=== PATIENT | female | born 1980 | race American Indian/Alaskan Native ===

== ENCOUNTER 2016-08-30 12:07 | Emergency (ER) | payer SELFPAY ==
[2016-08-30 12:17] VITALS: BP 129/88
--- NOTE | 2016-08-30 13:05 | XRay Report ---
LEFT ANKLE, 2 views: History: Left ankle pain. Bone mineralization is normal. There is mild diffuse soft tissue swelling. No acute osseous findings or joint pathology is appreciated. Moderate plantar spur. IMPRESSION: Soft tissue swelling. No acute process.
[2016-08-30] MEDS ORDERED: NORCO 5/325 PO ONE (15:55)
[2016-08-30] MEDS ORDERED: TORADOL IM ONE (15:55)
--- NOTE | 2016-08-30 16:24 | Emergency Department Report ---
Entered by JOHN GIORDANO, acting as scribe for JOSÉ ROBINS PA. ED Lower Extremity HPI - General Chief Complaint: Extremity Injury, Lower Stated Complaint: LFT ANKLE INJURY Time Seen by Provider: 08/30/16 15:34 Source: patient Mode of arrival: Ambulatory Limitations: No Limitations - History of Present Illness Initial Comments: 36 y/o female with no significant PMHx, presents to the ED c/o left ankle pain and swelling status post inversion injury beginning yesterday. She states she was at a trampoline park, at which time she missed the next trampoline and landed on the left ankle. Associated symptom of left ankle tenderness, but she denies chest pain, nausea, vomiting, fever, abdominal pain, and SOB. She denies prior Hx of ankle injury. Home treatment TECHNICAL CLERK includes RICE treatment and 800 mg ibuprofen, which alleviated the symptoms. MD Complaint: ankle injury (left) -: days(s) (1 day, yesterday) Injury: Ankle: Left Type of Injury: inversion Place: other (trampoline park) Severity: moderate Severity scale (0 -10): 6 Improves With: NSAID (800 ibuprofen), other (RICE treatment) Worsens With: movement Context: jumping (patient was at a trampoline park and landed on the affected ankle) Associated Symptoms: denies: other (SOB, chest pain, nausea, vomiting, abdominal pain, fever) Treatments Prior to Arrival: NSAIDS (800 ibuprofen last night), other (RONNIE bandage to affected extremity) - Related Data Previous Rx's Medication Instructions Recorded Last Taken Type Naproxen [Naprosyn] 500 mg PO BID #30 tablet 08/30/16 Unknown Rx Allergies Allergy/AdvReac Type Severity Reaction Status Date / Time Penicillins Allergy Unknown Verified 08/30/16 12:17 ED Review of Systems Comment: All other systems reviewed and negative Constitutional: denies: fever Respiratory: denies: shortness of breath Cardiovascular: denies: chest pain Gastrointestinal: denies: abdominal pain, nausea, vomiting Musculoskeletal: other (left ankle pain and tenderness) Skin: other (swelling of the left ankle) ED Past Medical Hx - Past Medical History Previous Medical History?: No - Surgical History Additional Surgical History: - Social History Smoking Status: Never Smoker Substance Use Type: Alcohol - Medications Home Medications: Home Medications Medication Instructions Recorded Confirmed Last Taken Type Naproxen [Naprosyn] 500 mg PO BID #30 tablet 08/30/16 Unknown Rx ED Physical Exam - General Limitations: No Limitations General appearance: alert, in no apparent distress - Head Head exam: Present: atraumatic, normocephalic - Eye Eye exam: Present: normal appearance - ENT ENT exam: Present: normal external ear exam - Neck Neck exam: Present: normal inspection, full ROM (supple) - Respiratory Respiratory exam: Present: normal lung sounds bilaterally (clear to auscultation throughout). Absent: respiratory distress - Cardiovascular Cardiovascular Exam: Present: regular rate, normal rhythm, normal heart sounds. Absent: systolic murmur, diastolic murmur, rubs, gallop - GI/Abdominal GI/Abdominal exam: Present: soft, normal bowel sounds (bowel sounds normative). Absent: tenderness, guarding, rebound - Extremities Exam Extremities exam: Present: tenderness (to the lateral aspect of the left ankle) , other (swelling to the lateral aspect of the left ankle, distal pulses intact , capillary refill is less than two seconds) - Back Exam Back exam: Present: normal inspection, full ROM - Neurological Exam Neurological exam: Present: alert, oriented X3, other (distal sensation is intact) - Skin Skin exam: Present: other (swelling noted to the lateral aspect of the left ankle). Absent: abrasion ED Course Vital Signs 08/30/16 08/30/16 08/30/16 12:14 16:09 16:10 Temperature 98.4 F Pulse Rate 58 L Respiratory 18 22 22 Rate Blood Pressure 129/88 O2 Sat by Pulse 100 Oximetry ED Lower Extremity MDM - Lab Data Vital Signs 08/30/16 08/30/16 08/30/16 12:14 16:09 16:10 Temperature 98.4 F Pulse Rate 58 L Respiratory 18 22 22 Rate Blood Pressure 129/88 O2 Sat by Pulse 100 Oximetry - Radiology Data Radiology results: report reviewed, image reviewed LEFT ANKLE, 2 views: History: Left ankle pain. Bone mineralization is normal. There is mild diffuse soft tissue swelling. No acute osseous findings or joint pathology is appreciated. Moderate plantar spur. IMPRESSION: Soft tissue swelling. No acute process. Transcribed By: TTR Dictated By: SHWETA MOSQUERA JR, MD Electronically Authenticated By: SHWETA MOSQUERA JR, MD Signed Date/Time: 08/30/16 1259 - Medical Decision Making 36 y/o female presents complaining of left ankle pain and swelling beginning yesterday status post inversion injury. Her left ankle x-ray is within normal limits. She will be discharged home and is encouraged to follow up with a primary care provider. She will be sent home on Naprosyn and is encouraged to return to the emergency room for any worsening symptoms. ED Disposition Clinical Impression: Ankle pain Qualifiers: Laterality: left Chronicity: acute Qualified Code(s): M25.572 - Pain in left ankle and joints of left foot Disposition: DISCHARGED TO HOME OR SELFCARE Is pt being admited?: No Does the pt Need Aspirin: No Condition: Stable Instructions: Ankle Sprain (ED), Ankle Exercises (GEN) Additional Instructions: Rest. Ice. Compress. Elevate. Follow-up with primary care provider. Return to the emergency department if symptoms worsen. Prescriptions: Naproxen [Naprosyn] 500 mg PO BID #30 tablet Referrals: PRIMARY MD OMID [Primary Care Provider] - 3-5 Days PASQUALE FORMAN MD [Staff Physician] - 3-5 Days Forms: Work/School Release Form(ED) Time of Disposition: 16:23 This documentation as recorded by the PASQUALE shane GRACE,accurately reflects the service I personally performed and the decisions made by SHIMON lane NATASHA, PA.
== END 2016-08-30 16:36 | disposition home or self-care (01) ==
LOC: ED 12:07
DX: M25.572 Pain in left ankle and joints of left foot (principal); Z88.0 Allergy status to penicillin; W18.30XA Fall on same level, unspecified, initial encounter; Y93.89 Activity, other specified; Y99.8 Other external cause status; Y92.830 Public park as the place of occurrence of the external cause
CPT/HCPCS: 73600; 96372; 99284; J1885

== ENCOUNTER 2016-09-28 14:01 | Outpatient (CLI) | payer OTHER ==
--- NOTE | 2016-09-30 09:06 | Magnetic Resonance Report ---
MR LOWER EXTREMITY JOINT LEFT WITHOUT CONTRAST HISTORY: Left ankle swelling. TECHNIQUE: Multisequence, multiplanar MRI without IV gadolinium. Fat suppression technique was utilized. COMPARISON: Left ankle, 2 views performed on 08/30/16 which demonstrated nonspecific lateral soft tissue swelling. FINDINGS: Soft tissue swelling has nearly resolved since the previous x-ray. There appears to be minimal nonspecific subcutaneous edema laterally on today's exam. There is a suggestion of mild thickening of the peroneal brevis and longus tendons in the lateral ankle. There is no convincing tear. No fluid in the tendon sheath to suggest tenosynovitis. A mild tendinopathy could be considered. The anterior tibial tendon, visualized foot dorsi flexor tendons, Achilles tendon, posterior tibial tendon, flexor digitorum longus tendon and flexor hallucis longus tendons have a normal appearance. Bone marrow signal throughout the visualized ankle and foot is within normal limits. No fracture, bone lesion or erosive joint pathology. No ligamentous injury is identified. A small joint effusion is identified at the tibiotalar joint of uncertain etiology. The plantar fascia is within normal limits. No plantar spur. Impression: Minimal nonspecific lateral soft tissue swelling which has decreased since the x-rays performed 08/30/16. Question mild peroneal brevis/longus tendinopathy. No tear, detachment or tenosynovitis. Small joint effusion at the ankle joint of uncertain etiology.
== END 2016-09-28 14:02 | disposition home or self-care (01) ==
LOC: MRI 14:01
DX: M25.472 Effusion, left ankle (principal)
CPT/HCPCS: 73721